=== PATIENT | male | born 1935 | race Caucasian/White ===

== ENCOUNTER → 2017-07-29 | Outpatient (CLI) | payer MEDICARE, OTHER ==
[~2017-07-29] MED LIST: ADULT LOW DOSE81 MG PO; COREG PO; DIABETA 5MG TABL5 MG PO; GEMFIBROZIL 60600 MG PO; HYDROCHLOROTH12.5 MG PO; LISINOPRIL5 MG PO; MEN'S 50+ ADVA1 EACH PO; METFORMIN 500500 MG PO; SIMVASTATIN10 MG PO; TRILIPIX45 MG PO
== END ==
LOC: M.CT 15:44
DX: S22.32XA Fracture of one rib, left side, initial encounter for closed fracture (principal); S09.8XXA Other specified injuries of head, initial encounter; G31.89 Other specified degenerative diseases of nervous system; E78.5 Hyperlipidemia, unspecified; I25.10 Atherosclerotic heart disease of native coronary artery without angina pectoris; I48.91 Unspecified atrial fibrillation; I10 Essential (primary) hypertension; Q25.3 Supravalvular aortic stenosis; I25.2 Old myocardial infarction; M51.34 Other intervertebral disc degeneration, thoracic region; Z95.1 Presence of aortocoronary bypass graft; W19.XXXA Unspecified fall, initial encounter; Y93.89 Activity, other specified; Y92.89 Other specified places as the place of occurrence of the external cause; Y99.8 Other external cause status

== ENCOUNTER → 2017-08-13 | Outpatient (CLI) | payer MEDICARE, OTHER ==
--- NOTE | 2017-08-13 14:53 | 2DMMODE ---
[place] [address] 2 D/M-MODE ECHOCARDIOGRAM Name: JEREMY VALENCIA Room: [facility]#: [id number] Admission: 08/13/17 Attend Phys: Juancho Parra, Discharge: Date of : 35 Date of Service: 08/13/17 1452 Report #: [id number] THIS REPORT FOR: //name// APPROVED REPORT Study performed: 08/13/2017 09:21:32 EXAM: Comprehensive 2D, Doppler, and color-flow Echocardiogram Patient Location: Out-Patient Status: routine BSA: 2.13 HR: 72 bpm BP: 115/60 mmHg Other Information Study Quality: Good Indications Aortic Valve Disease CAD 2D Dimensions LVEF(%): 53.46 (>50%) IVSd: 11.79 (7-11mm) LVOT Diam: 20.45 (18-24mm) LVDd: 52.48 mm PWd: 11.35 (7-11mm) Ascending Ao: 39.05 (22-36mm) LVDs: 37.90 (25-40mm) Aortic Root: 36.33 mm Snow's LVEF: 53.46 % Volumes Left Atrial Volume (Systole) LA ESV Index: 62.00 mL/m2 Aortic Valve AoV Peak Tanner.: 1.93 m/s AO Peak Gr.: 14.92 mmHg LVOT Max P.30 mmHg AO Mean Gr.: 8.74 mmHg LVOT Mean P.12 mmHg LVOT Max V: 0.76 m/s AO V2 VTI: 38.97 cm LVOT Mean V: 0.48 m/s BRAD (VTI): 1.35 cm2 LVOT V1 VTI: 15.97 cm AI [place]: 1.84 m/s2 AI PHT: 621.17 [place] [address] 2 D/M-MODE ECHOCARDIOGRAM Name: JEREMY VALENCIA Room: [facility]#: [id number] Admission: 08/13/17 Attend Phys: Juancho Parra, Discharge: Date of : 35 Date of Service: 08/13/17 1452 Report #: [id number] Mitral Valve MV Decel. Time: 211.34 ms MV E Max Tanner.: 0.92 m/s MV PHT: 61.29 ms MVA (PHT): 3.59 cm2 TDI E/Lateral E': 8.36 E/Medial E': 9.20 Medial E' Tanner.: 0.10 m/s Lateral E' Tanner.: 0.11 m/s Pulmonary Valve PV Peak Tanner.: 0.95 m/s PV Peak Gr.: 3.59 mmHg Tricuspid Valve TR Peak Gr.: 30.61 mmHg RVSP: 35.61 mmHg Left Ventricle The left ventricle is normal size. There is hypokinesis of the mid to distal septum and distal anterior and apical barrios. There is normal left ventricular wall thickness. Left ventricular systolic function is mild to moderately decreased. LVEF is 35-40%. This study is not technically sufficient to allow evaluation of the LV diastolic function due to atrial fibrillation. Right Ventricle The right ventricle is normal size. The right ventricular systolic function is normal. Atria Left atrium is moderately dilated. The right atrium size is normal. Aortic Valve Aortic valve leaflets are moderately thickened. Mild aortic regurgitation. Moderate aortic stenosis. Mitral Valve The mitral valve is normal in structure. Mild mitral regurgitation. No evidence of mitral valve stenosis. Tricuspid Valve The tricuspid valve is normal in structure. Mild tricuspid regurgitation. The RVSP is __35.6 mmHg[place] [address] 2 D/M-MODE ECHOCARDIOGRAM Name: JEREMY VALENCIA Room: [facility]#: [id number] Admission: 08/13/17 Attend Phys: Juancho Parra, Discharge: Date of : 35 Date of Service: 08/13/17 1452 Report #: [id number] The pulmonary valve is normal in structure. Mild pulmonic regurgitation. Great Vessels The aortic root is normal in size. IVC is normal in size and collapses with >50% inspiration Pericardium There is no pericardial effusion. <Conclusion> The left ventricle is normal size. There is normal left ventricular wall thickness. Left ventricular systolic function is mild to moderately decreased. LVEF is 35-40%. This study is not technically sufficient to allow evaluation of the LV diastolic function due to atrial fibrillation. Left atrium is moderately dilated. Aortic valve leaflets are moderately thickened. Mild aortic regurgitation. Moderate aortic stenosis. Mild mitral regurgitation. Mild tricuspid regurgitation. The RVSP is __35.6 mmHg. <ELECTRONICALLY SIGNED> By: Juancho Parra MD, FACC 08/13/17 145 145 145 Juancho Parra MD, FACC /INF
== END ==
LOC: M.CRD 09:00
DX: I08.3 Combined rheumatic disorders of mitral, aortic and tricuspid valves (principal); I25.10 Atherosclerotic heart disease of native coronary artery without angina pectoris; I48.91 Unspecified atrial fibrillation; E78.5 Hyperlipidemia, unspecified; I10 Essential (primary) hypertension; I25.2 Old myocardial infarction; Z95.1 Presence of aortocoronary bypass graft

== ENCOUNTER 2019-03-12 13:39 | Emergency (ER) | payer MEDICARE, OTHER ==
[~2019-03-12] VITALS: Ht 175.3 cm; Wt 99.8 kg
[2019-03-12] MEDS ORDERED: AMARYL4 MG PO (13:54)
[2019-03-12] MEDS ORDERED: XARELTO20 MG PO (13:54)
[2019-03-12] MEDS ORDERED: PIOGLITAZONE15 MG (13:54)
[2019-03-12] MEDS ORDERED: FISH OIL 1,001000 M2 PO (13:54)
[2019-03-12] MEDS ORDERED: COZAAR 25 MG TA25 M1 PO (13:55)
[2019-03-12] MEDS ORDERED: MULTIPLE VITAM1 EAC2 PO (13:55)
[2019-03-12 15:38] VITALS: BP 160/88
== END 2019-03-12 15:39 | disposition home or self-care (01) ==
LOC: M.ERS 13:39
DX: S01.01XA Laceration without foreign body of scalp, initial encounter (principal); S80.211A Abrasion, right knee, initial encounter; S80.212A Abrasion, left knee, initial encounter; I10 Essential (primary) hypertension; E11.9 Type 2 diabetes mellitus without complications; E78.00 Pure hypercholesterolemia, unspecified; G47.30 Sleep apnea, unspecified; Z90.89 Acquired absence of other organs; W01.198A Fall on same level from slipping, tripping and stumbling with subsequent striking against other object, initial encounter; Y93.01 Activity, walking, marching and hiking; Y92.009 Unspecified place in unspecified non-institutional (private) residence as the place of occurrence of the external cause; Y99.8 Other external cause status

== ENCOUNTER 2019-03-28 21:33 | Emergency (ER) | payer MEDICARE, OTHER ==
[~2019-03-28] VITALS: Ht 182.9 cm; Wt 90.7 kg
[~2019-03-28 21:33] MED LIST changes: +AMARYL4 MG PO; +CARVEDILOL3.125 MG PO; -COREG PO; +COZAAR 25 MG TA25 M1 PO; +FISH OIL 1,001000 M2 PO; -METFORMIN 500500 MG PO; +METFORMIN HCL500 MG PO; +MULTIPLE VITAM1 EAC2 PO; +PIOGLITAZONE15 MG; +XARELTO20 MG PO
[2019-03-28 22:12] LABS: ABSOLUTE EOSINOPHILS 0.1 thou/uL (0.0-0.7); ABSOLUTE MONOCYTES 0.5 thou/uL (0.0-1.2); ABSOLUTE NEUTROPHILS 3.8 thou/uL (1.6-8.1); BASOPHILS 0.4 %; EOSINOPHILS 1.3 %; HEMATOCRIT 31.3 % (42.0-52.0); HEMOGLOBIN 10.5 gm/dL (14.0-18.0); LYMPHOCYTES 18.8 %; MCH 33.1 pg (26.0-34.0); MCHC 33.7 g/dL (28.0-37.0); MCV 98.3 fL (80.0-100.0); MONOCYTES 10.2 %; MPV 9.7 fl. (7.2-11.1); NUCLEATED RBCS 0 /100WBC; PLATELET COUNT* 101 thou/uL (150-400); POLYS 69.3 %; RBC 3.18 mil/uL (4.50-6.00); RDW-CV 15.2 % (10.5-14.5); WBC 5.4 thou/uL (4.0-11.0)
[2019-03-28 22:21] LABS: CALCIUM 8.4 mg/dL (8.5-10.1); CREATININE 1.3 mg/dL (0.6-1.3); POTASSIUM 4.4 mmol/L (3.5-5.1)
[2019-03-28 22:26] LABS: INR 1.3; PROTIME 13.1 Seconds (9.20-11.50)
[2019-03-28 22:33] LABS: ALBUMIN 3.1 g/dL (3.4-5.0); TOTAL BILIRUBIN 0.5 mg/dL (<0.1-1.0); TOTAL PROTEIN 6.3 g/dL (6.4-8.2)
[2019-03-28] MEDS ORDERED: NORCO 5-325 TA1 EAC1 PO (23:17)
[2019-03-28 23:23] VITALS: BP 148/52
== END 2019-03-28 23:32 | disposition home or self-care (01) ==
LOC: M.ERS 21:33
PROVIDERS: Personal Emergency Response Attendant
DX: S83.91XA Sprain of unspecified site of right knee, initial encounter (principal); R60.0 Localized edema; I10 Essential (primary) hypertension; E78.00 Pure hypercholesterolemia, unspecified; E11.9 Type 2 diabetes mellitus without complications; G47.30 Sleep apnea, unspecified; Z90.89 Acquired absence of other organs; Z98.890 Other specified postprocedural states; X58.XXXA Exposure to other specified factors, initial encounter; Y92.89 Other specified places as the place of occurrence of the external cause; Y93.89 Activity, other specified; Y99.8 Other external cause status

== ENCOUNTER 2019-03-29 13:10 | Inpatient (IN) | payer MEDICARE, OTHER ==
[~2019-03-29] VITALS: Ht 175.3 cm; Wt 97.5 kg
[~2019-03-29 13:10] MED LIST changes: +NORCO 5-325 TA1 EAC1 PO
[2019-03-29 13:24] VITALS: BP 149/78
[2019-03-29 13:56] LABS: ABSOLUTE EOSINOPHILS 0.1 thou/uL (0.0-0.7); ABSOLUTE MONOCYTES 0.6 thou/uL (0.0-1.2); ABSOLUTE NEUTROPHILS 3.9 thou/uL (1.6-8.1); BASOPHILS 0.3 %; HEMATOCRIT 31.5 % (42.0-52.0); HEMOGLOBIN 10.8 gm/dL (14.0-18.0); LYMPHOCYTES 18.4 %; MCH 33.2 pg (26.0-34.0); MCHC 34.2 g/dL (28.0-37.0); MONOCYTES 10.8 %; MPV 9.7 fl. (7.2-11.1); NUCLEATED RBCS 0 /100WBC; PLATELET COUNT* 117 thou/uL (150-400); POLYS 69.5 %; RBC 3.25 mil/uL (4.50-6.00); RDW-CV 15.3 % (10.5-14.5); WBC 5.6 thou/uL (4.0-11.0)
[2019-03-29 14:04] LABS: CALCIUM 8.6 mg/dL (8.5-10.1); CREATININE 1.1 mg/dL (0.6-1.3)
[2019-03-29 14:07] LABS: INR 1.5
[2019-03-29 14:09] LABS: ALBUMIN 3.3 g/dL (3.4-5.0); TOTAL BILIRUBIN 0.7 mg/dL (<0.1-1.0); TOTAL PROTEIN 6.7 g/dL (6.4-8.2); URIC ACID* 3.4 mg/dL (2.6-7.2)
[2019-03-29 16:42] VITALS: BP 149/78
--- NOTE | 2019-03-29 16:57 | NUR ---
PATIENT ARRIVED TO UNIT AT 1652 VIA WHEELCHAIR FROM THE ER. ALERT AND ORIENTED X 4. VITAL SIGNS STABLE ON ROOM AIR. AMBULATED WITH STAND BY ASSISTANCE FROM WHEELCHAIR TO BED. ORIENTED PATIENT TO ROOM. FALL PRECAUTIONS IN PLACE AND BED ALARM ON. CALL LIGHT WITHIN REACH. NURSING WILL CONTINUE TO MONITOR.
[2019-03-29 17:20] VITALS: BP 143/84
--- NOTE | 2019-03-29 22:53 | NUR ---
PATIENT RECEIVED METFORMIN AT 2037 HIS BLOOD SUGAR WAS 234. RECHECKED AT 2250 AND IT WAS 236. LEFT A MESSAGE FOR DR CIFUENTES TO LET HIM KNOW
[2019-03-29 23:18] VITALS: BP 132/69
--- NOTE | 2019-03-30 04:53 | NUR ---
PATIENT WAS PLEASANT DID NOT REPORT ANY PAIN UNLESS HE MOVES HIS RLE. HE DID NOT WANT ANY PAIN MEDS. AT 0840 I GAVE HIM METFORMIN AND HIS BLOOD SUGAR WAS 234 CHECKED 2 HOURS LATER IT WAS 246. I LEFT A MESSAGE WITH DR HUSTON ON [facility] JUST TO INFORM HIM OF THAT. HE USED HIS URINAL AND GOT A DOSE OF CEFEPIME IV. SLEPT THROUGH SHIFT. WILL CONTINUE TO MONITOR. VASCULAR HAS BEEN CONSULTED FOR ROUTINE VISIT TO CHECK FOR HEMATOMA
[2019-03-30 05:04] LABS: ABSOLUTE EOSINOPHILS 0.1 thou/uL (0.0-0.7); ABSOLUTE LYMPHOCYTES 1.1 thou/uL (0.8-5.3); ABSOLUTE MONOCYTES 0.6 thou/uL (0.0-1.2); ABSOLUTE NEUTROPHILS 3.2 thou/uL (1.6-8.1); BASOPHILS 0.4 %; EOSINOPHILS 1.1 %; HEMATOCRIT 28.2 % (42.0-52.0); HEMOGLOBIN 9.4 gm/dL (14.0-18.0); MCH 32.5 pg (26.0-34.0); MCHC 33.4 g/dL (28.0-37.0); MCV 97.4 fL (80.0-100.0); MONOCYTES 11.9 %; MPV 9.7 fl. (7.2-11.1); NUCLEATED RBCS 0 /100WBC; PLATELET COUNT* 103 thou/uL (150-400); POLYS 64.6 %; RDW-CV 15.3 % (10.5-14.5); WBC 4.9 thou/uL (4.0-11.0)
[2019-03-30 05:13] LABS: CALCIUM 8.4 mg/dL (8.5-10.1); CREATININE 1.2 mg/dL (0.6-1.3); POTASSIUM 4.2 mmol/L (3.5-5.1)
[2019-03-30 08:00] VITALS: BP 136/79
--- NOTE | 2019-03-30 12:00 | EKG ---
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1935 Requested By: Rogelio Plasencia Order Number: [id number] MD: Marcin Moser Measurements Intervals [place] Rate: 52 P: FL: QRS: -20 QRSD: 143 T: -2 QT: 437 QTc: 407 Interpretive Statements Atrial fibrillation Right bundle branch block Compared to ECG 08/17/2009 00:19:52 Right bundle-branch block now present Sinus bradycardia no longer present T-wave abnormality no longer present Electronically Signed On 03-30-2019 11:59:53 CDT by Marcin Moser [email or web address] <ELECTRONICALLY SIGNED> By: Marcin Moser MD, [facility] 03/30/19 1159 1555 1555 Marcin Moser MD, [facility] /EPI
--- NOTE | 2019-03-30 13:12 | 2DMMODE ---
[place] [address] 2 D/M-MODE ECHOCARDIOGRAM Name: JEREMY VALENCIA Room: [address] IN [facility]#: [id number] Admission: 03/29/19 Attend Phys: Paco Cordova, Discharge: Date of : 35 Date of Service: 03/30/19 1311 Report #: [id number] THIS REPORT FOR: //name// APPROVED REPORT Study performed: 03/30/2019 10:16:19 EXAM: Comprehensive 2D, Doppler, and color-flow Echocardiogram Patient Location: In-Patient Room #: [facility] Status: routine BSA: 2.13 HR: 68 bpm BP: 136/79 mmHg Rhythm: Atrial Fibrillation Other Information Study Quality: Good Indications Congestive Heart Failure Atrial Fibrillation 2D Dimensions IVSd: 13.26 (7-11mm) LVOT Diam: 23.50 (18-24mm) LVDd: 50.40 mm PWd: 14.00 (7-11mm) LVDs: 33.38 (25-40mm) Aortic Root: 36.76 mm Volumes Left Atrial Volume (Systole) LA ESV Index: 79.40 mL/m2 Aortic Valve AoV Peak Tanner.: 2.12 m/s AO Peak Gr.: 18.02 mmHg LVOT Max P.40 mmHg AO Mean Gr.: 9.95 mmHg LVOT Mean P.17 mmHg LVOT Max V: 0.78 m/s AO V2 VTI: 42.65 cm LVOT Mean V: 0.50 m/s BRAD (VTI): 1.55 cm2 LVOT V1 VTI: 15.25 cm AI [place]: 1.40 m/s2 AI PHT: 761.05 [place] [address] 2 D/M-MODE ECHOCARDIOGRAM Name: JEREMY VALENCIA Room: [address] IN ..#: [id number] Admission: 03/29/19 Attend Phys: Paco Cordova, Discharge: Date of : 35 Date of Service: 03/30/19 1311 Report #: [id number] MV Decel. Time: 138.99 ms MV PHT: 40.31 ms MVA (PHT): 5.46 cm2 TDI Medial E' Tanner.: 0.09 m/s Lateral E' Tanner.: 0.15 m/s Pulmonary Valve PV Peak Tanner.: 1.11 m/s PV Peak Gr.: 4.89 mmHg Tricuspid Valve RAP Estimate: 5.00 mmHg TR Peak Gr.: 25.87 mmHg RVSP: 30.00 mmHg PA Pressure: 30.00 mmHg Left Ventricle The left ventricle is normal size. There is mild diffuse hypokinesis of left ventricular wall motion. There is normal left ventricular wall thickness. Left ventricular systolic function is mildly decreased. LVEF is 45%. This study is not technically sufficient to allow evaluation of the LV diastolic function due to atrial fibrillation. Right Ventricle The right ventricle is normal size. The right ventricular systolic function is normal. Atria Left atrium is moderately dilated. The right atrium size is normal. Aortic Valve Mild aortic valve sclerosis. Mild aortic regurgitation. Mild aortic stenosis. Mitral Valve The mitral valve is normal in structure. Mild mitral regurgitation. No evidence of mitral valve stenosis. Tricuspid Valve The tricuspid valve is normal in structure. Mild tricuspid regurgitation. Mild pulmonary hypertension. Pulmonic Valve The pulmonary valve is normal in structure. There [place] [address] 2 D/M-MODE ECHOCARDIOGRAM Name: JEREMY VALENCIA Room: [address] IN [facility].#: [id number] Admission: 03/29/19 Attend Phys: Paco Cordova, Discharge: Date of : 35 Date of Service: 03/30/19 1311 Report #: [id number] valvular regurgitation. Great Vessels The aortic root is normal in size. IVC is not well visualized. Pericardium There is no pericardial effusion. <Conclusion> The left ventricle is normal size. There is normal left ventricular wall thickness. Left ventricular systolic function is mildly decreased. LVEF is 45%. This study is not technically sufficient to allow evaluation of the LV diastolic function due to atrial fibrillation. The right ventricle is normal size. Left atrium is moderately dilated. Mild aortic valve sclerosis. Mild aortic regurgitation. Mild aortic stenosis. The mitral valve is normal in structure. Mild mitral regurgitation. No evidence of mitral valve stenosis. The tricuspid valve is normal in structure. Mild tricuspid regurgitation. Mild pulmonary hypertension. There is no pericardial effusion. There is mild diffuse hypokinesis of left ventricular wall motion. <ELECTRONICALLY SIGNED> By: Marcin Moser MD, [facility] 03/30/19 131 10 10 Marcin Moser MD, FACC /INF
--- NOTE | 2019-03-30 15:00 | NUR ---
PT.IN BED. AND DAUGHTER AT BEDSIDE. PT.SAID HE IS NORMALLY INDEPENDENT. HE DOES NOT USE ANY DME. HIS HAS A CANE. HE SAID HE MIGHT GET A CANE. NO HX OF HH. 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 LATELY HE HASN'T BEEN ABLE TO DRIVE DUE TO R LEG PAIN BUT DRIVES. HIS SON VILMA IS HIS DPOA.
[2019-03-30 16:00] VITALS: BP 102/50
--- NOTE | 2019-03-30 17:36 | NUR ---
PT A&Ox4. VITALS STABLE. UP AD YOLA. TUBAGRIP IN PLACE. IV PATENT. MINIMAL PAIN, DENIED MEDS. DENIED N/V. TOLERATING MEALS. FAMILY IN ROOM. CALL LIGHT WITHIN REACH. WILL CONTINUE TO MONITOR.
[2019-03-30 20:19] VITALS: BP 127/67
[2019-03-31 00:30] VITALS: BP 127/67
--- NOTE | 2019-03-31 07:33 | CON ---
[address] [address] CONSULTATION Name: JEREMY VALENCIA Room: [address] IN M.R.#: [id number] Admission: 03/29/19 Attend Phys: Paco Cordova MD Discharge: Date of : 35 Report #: [id number] THIS REPORT FOR: //name// CC: Paco Cordova Marcin Sethi DATE OF SERVICE: 03/30/2019 INFECTIOUS DISEASE CONSULTATION ATTENDING PHYSICIAN: Paco Cordova M.D. REASON FOR EVALUATION: Right knee and thigh inflammatory eruption with concern about cellulitis, possible hematoma. HISTORY OF PRESENT ILLNESS: Chart reviewed, patient examined. This is an 83-year-old gentleman with diabetes mellitus, also with known complications of vasculopathy, who presented subsequent to a fall. He struck both his knees roughly 3 weeks ago. This initially had a bruised area, primarily on the left that seems to have improved; however, over the course of last several days, the right lower extremity essentially through its length has taut edema. There is some associated discomfort. No overt pain. He is able to bend the knee although he does have some limitations in his ambulation. It is not clear if he has had fevers or chills. Appetite has been mildly diminished. No pulmonary or gastrointestinal related complaints. He has been evaluated on several occasions. He was seen in the Emergency Room, was found to have normal white count. Sugar was elevated at 234. CRP 11.5. Venous Doppler showed no evidence of deep venous thrombosis, although did show a 3 x 5.2 cm, 13 cm in length, complex cystic lesion, perhaps a Mitchell's cyst versus hematoma. Blood cultures are sterile thus far. He has not had recorded temperature elevations. He was empirically started on therapy with cefazolin. ALLERGIES: None known. CURRENT MEDICATIONS: Include losartan, fish oil, glimepiride, aspirin, gemfibrozil, furosemide, pioglitazone, pantoprazole, cefazolin, metformin, p.r.n. analgesics and antiemetics. PAST MEDICAL HISTORY: Diabetes mellitus type 2, history of hypertension, has known vasculopathy with aortocoronary bypass grafting, obstructive sleep apnea. SOCIAL HISTORY: Nonsmoker, no ethanol, no illicit drug use. FAMILY HISTORY: Noncontributory. REVIEW OF SYSTEMS: Otherwise, unremarkable 10-point review [place] [address] CONSULTATION Name: JEREMY VALENCIA Room: [address]#: [id number] Admission: 03/29/19 Attend Phys: Paco Cordova MD Discharge: Date of : 35 Report #: [id number] exception of noted above in history of present illness. PHYSICAL EXAMINATION: GENERAL: He is alert, cooperative, appropriate. He is in borc-uk-stxitcev distress, appears to be generally well nourished. He is not encephalopathic. VITAL SIGNS: Temperature 98.2, pulse 60, respirations 16, blood pressure 136/79. SKIN: Warm, dry, no rashes. HEENT: Otherwise, unremarkable. NECK: Supple. LUNGS: Generally clear to auscultation. HEART: Regular. I do not appreciate a murmur, borderline bradycardic. ABDOMEN: Soft, nontender, nondistended. EXTREMITIES: Right lower extremity has taut edema, essentially extending well into the proximal thigh and down the leg to the ankle. It is mildly erythematous, does have some decreased range of motion about the knee, but is not particularly painful for him to manipulate passively. There appears to be perhaps a puncture site in the mid portion of the anterior thigh. ASSESSMENT AND PLAN: Right lower extremity inflammatory eruption. I think it is reasonable to continue the empiric therapy with cefazolin. It is difficult to ascertain whether this is strictly a noninfectious cause, certainly having possible skin and soft tissue infection. I do not think there is a septic arthritis, cannot entirely exclude a septic bursitis given the trauma to the site. We will evaluate with MRI. Await surgical evaluation. Thank you. We will follow. <ELECTRONICALLY SIGNED> By: Kem Chauhan MD 03/31/19 0733 1035 [id number] Chauhan MD /nt
[2019-03-31 07:52] VITALS: BP 119/80
[2019-03-31 09:16] VITALS: BP 119/80
[2019-03-31] MEDS ORDERED: KEFLEX500 M1 PO (11:00)
[2019-03-31] MEDS ORDERED: LASIX 40 MG TAB40 M2 PO (11:01)
[2019-03-31] MEDS ORDERED: KLOR-CON 1010 MEQ PO (12:32)
--- NOTE | 2019-03-31 12:33 | NUR ---
PT DISCHARGED TO HOME BY WHEELCHAIR WITH NURSING STAFF AND . IV OUT. PT STABLE UPON DISCHARGE. PAPER RX GIVEN WITH CARE NOTES. DENIED PAIN. DENIED N/V. TUBIGRIP AND HAN WRAP IN PLACE.
== END 2019-03-31 12:32 | disposition home or self-care (01) | DRG 602 ==
LOC: M.ERS 13:10 → M.ORTHSURG 15:52 → M.TBA-ER 15:52 → M.ORTHSURG 16:52
PROVIDERS: Emergency Medicine; ADMIT Internal Medicine
DX: L03.115 Cellulitis of right lower limb (principal); I50.23 Acute on chronic systolic (congestive) heart failure; M25.061 Hemarthrosis, right knee; S80.11XA Contusion of right lower leg, initial encounter; D64.9 Anemia, unspecified; M66.0 Rupture of popliteal cyst; I48.91 Unspecified atrial fibrillation; E78.5 Hyperlipidemia, unspecified; I11.0 Hypertensive heart disease with heart failure; W19.XXXA Unspecified fall, initial encounter; T14.8XXA Other injury of unspecified body region, initial encounter; X58.XXXA Exposure to other specified factors, initial encounter; I25.10 Atherosclerotic heart disease of native coronary artery without angina pectoris; E11.9 Type 2 diabetes mellitus without complications; Z79.82 Long term (current) use of aspirin; Z79.899 Other long term (current) drug therapy; Z95.1 Presence of aortocoronary bypass graft; Y93.89 Activity, other specified; Y92.89 Other specified places as the place of occurrence of the external cause; Y99.8 Other external cause status

== ENCOUNTER → 2019-04-13 | Outpatient (CLI) | payer MEDICARE, OTHER ==
[~2019-04-13] MED LIST changes: +KEFLEX500 M1 PO; +KLOR-CON 1010 MEQ PO; +LASIX 40 MG TAB40 M2 PO
== END ==
LOC: M.MRI 15:47
DX: S86.811A Strain of other muscle(s) and tendon(s) at lower leg level, right leg, initial encounter (principal); X58.XXXA Exposure to other specified factors, initial encounter; Y93.89 Activity, other specified; Y92.89 Other specified places as the place of occurrence of the external cause; Y99.8 Other external cause status

== ENCOUNTER 2020-09-26 15:22 | Inpatient (IN) | payer MEDICARE ==
[~2020-09-26] VITALS: Ht 182.9 cm; Wt 90.4 kg
[2020-09-26 15:30] VITALS: BP 171/103
[2020-09-26 15:46] LABS: ABSOLUTE EOSINOPHILS 0.1 thou/uL (0.0-0.7); ABSOLUTE LYMPHOCYTES 0.7 thou/uL (0.8-5.3); ABSOLUTE MONOCYTES 0.6 thou/uL (0.0-1.2); ABSOLUTE NEUTROPHILS 4.3 thou/uL (1.6-8.1); BASOPHILS 0.5 %; EOSINOPHILS 1.5 %; HEMATOCRIT 35.1 % (42.0-52.0); HEMOGLOBIN 11.6 gm/dL (14.0-18.0); LYMPHOCYTES 12.2 %; MCH 32.4 pg (26.0-34.0); MCHC 33.1 g/dL (28.0-37.0); MCV 97.8 fL (80.0-100.0); MONOCYTES 10.2 %; MPV 10.7 fl. (7.2-11.1); NUCLEATED RBCS 0 /100WBC; PLATELET COUNT* 100 thou/uL (150-400); POLYS 75.6 %; RBC 3.59 mil/uL (4.50-6.00); RDW-CV 15.5 % (10.5-14.5); WBC 5.7 thou/uL (4.0-11.0)
[2020-09-26 15:52] LABS: CREATININE 1.3 mg/dL (0.6-1.3); POTASSIUM 4.3 mmol/L (3.5-5.1)
[2020-09-26 15:54] LABS: INR 1.4; PROTIME 14.3 Seconds (9.20-11.50)
[2020-09-26 16:03] LABS: ALBUMIN 3.8 g/dL (3.4-5.0); TOTAL BILIRUBIN 0.8 mg/dL (<0.1-1.0); TOTAL PROTEIN 7.4 g/dL (6.4-8.2)
[2020-09-26 18:45] VITALS: BP 166/99
[2020-09-26 18:46] VITALS: BP 166/99; BP 184/82
--- NOTE | 2020-09-26 18:49 | NUR ---
PT ARRIVED ON UNIT APPROX 1845 PT A&OX4 VSS. EDEMA/REDNESS OBSERVED TO LLE. PT ON 2L O2 BY NC. O2 SAT 100% A FIB ON MONITOR. PT IS ACCUCHECK. IV TO LAC PATENT, SALINE LOCKED. PT RESTS IN ROOM WITH CALL LIGHT IN REACH.
[2020-09-27 00:12] VITALS: BP 145/83
[2020-09-27 05:02] LABS: ABSOLUTE EOSINOPHILS 0.1 thou/uL (0.0-0.7); ABSOLUTE LYMPHOCYTES 0.7 thou/uL (0.8-5.3); ABSOLUTE MONOCYTES 0.6 thou/uL (0.0-1.2); ABSOLUTE NEUTROPHILS 3.6 thou/uL (1.6-8.1); BASOPHILS 0.5 %; EOSINOPHILS 2.3 %; HEMATOCRIT 29.6 % (42.0-52.0); LYMPHOCYTES 13.2 %; MCH 32.5 pg (26.0-34.0); MCHC 33.8 g/dL (28.0-37.0); MCV 96.2 fL (80.0-100.0); MONOCYTES 11.2 %; MPV 10.7 fl. (7.2-11.1); NUCLEATED RBCS 0 /100WBC; PLATELET COUNT* 82 thou/uL (150-400); POLYS 72.8 %; RBC 3.08 mil/uL (4.50-6.00); RDW-CV 15.6 % (10.5-14.5)
[2020-09-27 05:04] VITALS: BP 126/70
[2020-09-27 05:12] LABS: ANION GAP 8 mmol/L (7-16); BUN 27 mg/dL (7-18); CHLORIDE 107 mmol/L (98-107); CO2 28 mmol/L (21-32); CREATININE 1.1 mg/dL (0.6-1.3); GLUCOSE 83 mg/dL (70-99); SODIUM 143 mmol/L (136-145); TROPONIN-I LEVEL <0.06 ng/mL (<0.06)
[2020-09-27 07:50] VITALS: BP 150/86
--- NOTE | 2020-09-27 09:30 | EKG ---
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 : 1935 Requested By: Leonardo Muller Order Number: [id number] MD: Juancho Parra Measurements Intervals [place] Rate: 79 P: LA: QRS: -10 QRSD: 117 T: 38 QT: 444 QTc: 510 Interpretive Statements Atrial fibrillation Premature ventricular contraction Right bundle branch block Compared to ECG 03/29/2019 15:55:30 No significant changes noted Electronically Signed On 09-27-2020 9:30:06 [employer] MACHINE OPERATOR by Juancho Parra [email or web address] <ELECTRONICALLY SIGNED> By: Juancho Parra MD, FACC 09/27/20 0930 1527 1527 Juancho Parra MD, [facility] /EPI
--- NOTE | 2020-09-27 10:20 | NUR ---
Pt is A&O. Resides at home with , in room at bedside. Pt is independent. Has a home cpap, no other DME. No hx of HH or SNF. Goal is home at dc, no needs anticipated. Following.
[2020-09-27 11:55] VITALS: BP 138/78
--- NOTE | 2020-09-27 15:41 | 2DMMODE ---
[place] [address] 2 D/M-MODE ECHOCARDIOGRAM Name: JEREMY VALENCIA Room: [address] IN [facility]#: [id number] Admission: 09/27/20 Attend Phys: Paco Cordova, Discharge: Date of : 35 Date of Service: 09/27/20 1541 Report #: [id number] THIS REPORT FOR: cc: Marcin Sethi John E. DO Liston, Michael J. MD [facility] ~ APPROVED REPORT Study performed: 09/27/2020 11:04:49 EXAM: Comprehensive 2D, Doppler, and color-flow Echocardiogram Patient Location: In-Patient Room #: [facility] Status: routine BSA: 2.14 HR: 72 bpm BP: 150/86 mmHg Rhythm: Atrial Fibrillation Other Information Study Quality: Good Indications Congestive Heart Failure Atrial Fibrillation 2D Dimensions IVSd: 9.16 (7-11mm) LVOT Diam: 21.67 (18-24mm) LVDd: 60.29 mm PWd: 10.17 (7-11mm) Ascending Ao: 40.30 (22-36mm) LVDs: 50.26 (25-40mm) Aortic Root: 37.21 mm Volumes Left Atrial Volume (Systole) LA ESV Index: 87.60 mL/m2 Aortic Valve AoV Peak Tanner.: 1.87 m/s AO Peak Gr.: 13.99 mmHg LVOT Max P.58 mmHg AO Mean Gr.: 7.84 mmHg LVOT Mean P.69 mmHg LVOT Max V: 0.95 m/s AO V2 VTI: 37.45 cm LVOT Mean V: 0.59 m/s BRAD (VTI): 1.81 cm2 LVOT V1 VTI: 18.40 [place] [address] 2 D/M-MODE ECHOCARDIOGRAM Name: JEREMY VALENCIA Room: [address] IN [facility]#: [id number] Admission: 09/27/20 Attend Phys: Paco Cordova, Discharge: Date of : 35 Date of Service: 09/27/20 1541 Report #: [id number] TDI Lateral E' Tanner.: 0.11 m/s Pulmonary Valve PV Peak Tanner.: 1.03 m/s PV Peak Gr.: 4.27 mmHg Tricuspid Valve RAP Estimate: 5.00 mmHg TR Peak Gr.: 39.47 mmHg RVSP: 44.00 mmHg PA Pressure: 44.00 mmHg Left Ventricle Left ventricle is mildly dilated. There is akinesis of the apex and distal portions of the apical septum and apical anterior wall. There is normal left ventricular wall thickness. Left ventricular systolic function is moderate to severely decreased. LVEF is 30-35%. This study is not technically sufficient to allow evaluation of the LV diastolic function due to atrial fibrillation. Right Ventricle The right ventricle is normal size. The right ventricular systolic function is normal. Atria Left atrium is severely dilated. Right atrium is moderately dilated. Aortic Valve Moderate aortic valve sclerosis. Mild aortic regurgitation. Mild aortic stenosis. Mitral Valve The mitral valve is normal in structure. Mild mitral regurgitation. No evidence of mitral valve stenosis. Tricuspid Valve The tricuspid valve is normal in structure. Mild tricuspid regurgitation. Moderate pulmonary hypertension. Pulmonic Valve The pulmonary valve is normal in structure. There is no pulmonic valvular regurgitation. Great Vessels The aortic root is normal in size. [place] [address] 2 D/M-MODE ECHOCARDIOGRAM Name: JEREMY VALENCIA Room: [address] IN [facility]#: [id number] Admission: 09/27/20 Attend Phys: Paco Cordova, Discharge: Date of : 35 Date of Service: 09/27/20 1541 Report #: [id number] visualized. Pericardium There is no pericardial effusion. <Conclusion> Left ventricle is mildly dilated. There is normal left ventricular wall thickness. Left ventricular systolic function is moderate to severely decreased. LVEF is 30-35%. There is akinesis of the apex and distal portions of the apical septum and apical anterior wall. Left atrium is severely dilated. Right atrium is moderately dilated. Moderate aortic valve sclerosis. Mild aortic stenosis. Mild aortic regurgitation. Mild mitral regurgitation. Mild tricuspid regurgitation. Moderate pulmonary hypertension. <ELECTRONICALLY SIGNED> By: Juancho Parra MD, FACC 09/27/20 1541 1541 1541 Juancho Parra MD, FACC /INF
[2020-09-27 16:32] VITALS: BP 134/66
[2020-09-27 20:00] VITALS: BP 152/83
[2020-09-28 00:25] VITALS: BP 145/81
--- NOTE | 2020-09-28 00:32 | NUR ---
PT ALERT ORIENTED. UP AD YOLA IN ROOM. TELEMETRY SHOWS AFIB. ON RA.
[2020-09-28 03:50] VITALS: BP 159/81
[2020-09-28 05:27] LABS: ABSOLUTE EOSINOPHILS 0.1 thou/uL (0.0-0.7); ABSOLUTE LYMPHOCYTES 0.8 thou/uL (0.8-5.3); ABSOLUTE MONOCYTES 0.5 thou/uL (0.0-1.2); ABSOLUTE NEUTROPHILS 3.4 thou/uL (1.6-8.1); BASOPHILS 0.4 %; HEMATOCRIT 32.8 % (42.0-52.0); LYMPHOCYTES 16.8 %; MCH 32.1 pg (26.0-34.0); MCHC 33.6 g/dL (28.0-37.0); MCV 95.3 fL (80.0-100.0); MONOCYTES 10.7 %; MPV 10.9 fl. (7.2-11.1); NUCLEATED RBCS 0 /100WBC; PLATELET COUNT* 99 thou/uL (150-400); POLYS 70.1 %; RBC 3.44 mil/uL (4.50-6.00); RDW-CV 15.6 % (10.5-14.5); WBC 4.9 thou/uL (4.0-11.0)
[2020-09-28 05:43] LABS: ALBUMIN 3.4 g/dL (3.4-5.0); CALCIUM 8.9 mg/dL (8.5-10.1); CREATININE 1.2 mg/dL (0.6-1.3); TOTAL BILIRUBIN 0.8 mg/dL (<0.1-1.0); TOTAL PROTEIN 6.9 g/dL (6.4-8.2)
[2020-09-28 08:00] VITALS: BP 166/87
[2020-09-28 12:02] VITALS: BP 90/57
--- NOTE | 2020-09-28 12:59 | NUR ---
Cards following, low EF. Anticipate dc to home tomorrow. No needs anticipated.
[2020-09-28 13:44] LABS: URINE BILIRUBIN NEGATIVE (Negative); URINE BLOOD NEGATIVE (Negative); URINE CLARITY CLEAR; URINE COLOR YELLOW; URINE GLUCOSE-RANDOM NEGATIVE (Negative); URINE KETONES NEGATIVE (Negative); URINE LEUKOCYTES-REFLEX NEGATIVE (Negative); URINE NITRITE-REFLEX NEGATIVE (Negative); URINE PROTEIN NEGATIVE (Negative); URINE SPECIFIC GRAVITY 1.015 (1.005-1.030); URINE UROBILINOGEN 0.2 E.U./dl (0.2-1.0)
[2020-09-28 16:57] VITALS: BP 111/62
--- NOTE | 2020-09-28 19:50 | NUR ---
ASSUMED PT CARE AT 0730, PT AOX4 BUT FORGETFUL, NO C/O CHEST PAIN. PT WORKED W/ CARDIOLOGY TODAY AND ON 2000 ML FLUID RESTRICTION NOW. PT GOAL IS TO REMAIN COMPLIANT W/ FLUID RESTRICTION AND FREE OF CHEST PAIN. IN ROOM AND UPDATED ON POC. MEDS PER MAR, HOURLY ROUNDING OBSERVED, CALL LIGHT W/IN REACH.
[2020-09-28 20:00] VITALS: BP 105/53
[2020-09-29] VITALS (7 sets, daily range): BP systolic 132–172; BP diastolic 67–92
[2020-09-29 04:40] LABS: ABSOLUTE EOSINOPHILS 0.1 thou/uL (0.0-0.7); ABSOLUTE LYMPHOCYTES 0.8 thou/uL (0.8-5.3); ABSOLUTE MONOCYTES 0.6 thou/uL (0.0-1.2); ABSOLUTE NEUTROPHILS 3.7 thou/uL (1.6-8.1); BASOPHILS 0.4 %; HEMATOCRIT 29.5 % (42.0-52.0); LYMPHOCYTES 15.3 %; MCH 32.4 pg (26.0-34.0); MCHC 33.7 g/dL (28.0-37.0); MCV 96.1 fL (80.0-100.0); NUCLEATED RBCS 0 /100WBC; PLATELET COUNT* 87 thou/uL (150-400); POLYS 70.3 %; RBC 3.07 mil/uL (4.50-6.00); RDW-CV 15.2 % (10.5-14.5); WBC 5.3 thou/uL (4.0-11.0)
[2020-09-29 04:49] LABS: CALCIUM 8.8 mg/dL (8.5-10.1); CREATININE 1.3 mg/dL (0.6-1.3); POTASSIUM 3.7 mmol/L (3.5-5.1)
--- NOTE | 2020-09-29 06:11 | NUR ---
ASSUMED PT CARE AT APPROX 1930. PT IS AWAKE AND ORIENTED X4. PT IS NOT IN DISTRESS, NO DESATURATIONS NOTED ON ROOM AIR. PT IS AFIB ON THE PIPING DRAFTER-RATE IS CONTROLLED. THIS NURSE WAS DOING HOURLY ROUNDING AT AROUND 0420H, THIS NURSE WAS STANDING BY THE PT'S DOOR AND NOTICED THAT THE PT IS UP AND JUST GOT DONE GOING TO THE BATHROOM AND IS GETTING READY TO GET BACK IN BED. THIS NURSE IS ON HER WAY IN TO THE ROOM THIS NURSE HEARD A NOISE AND SAW THAT THE PT FELL ON THE FLOOR. AN ABRASION/HEMATOMA WAS NOTED ON THE RIGHT TEMPORAL AREA OF THE HEAD. NO OTHER INJURY WAS NOTED. VITAL SIGNS TAKEN AND POST FALL ASSESSMENT DONE. HIGH FALL PRECAUTIONS PUT IN PLACE. CHARGE NURSE, NURSING IT ADMINISTRATOR AND PHYSICIAN DIGITIZER OPERATOR NOTIFIED. PT STATED HE DID NOT WANT HIS FAMILY INFORMED AT THIS TIME. PT EDUCATION GIVEN REGARDING THE USE OF CALL LIGHT AND PT WAS EDUCATED TO CALL FOR ASSISTANCE BEFORE GETTING UP. PT IS INFORMED ABOUT THE USE OF BED AND CHAIR ALARMS. PT IS CLOSELY MONITORED
--- NOTE | 2020-09-29 08:41 | NUR ---
WOUND NURSE: INFORMED PATIENT HAD A FALL THIS MORNING. RECEIVED AN ABRASION ON THE RIGHT WORSHIP MEASURING 3.0 X 4.0 X 0.1 CM. THIS CONTAINS RED, NONGRANULATING TISSUE, NO ACTIVE DRAINAGE NOW. CLEANSED WITH NORMAL SALINE AND GAUZE. APPIED SKIN PREP TO PERIWOUND TISSUE FOR PROTECTION. APPLIED OIL EMULSION GAUZE UNDER BODERED FOAM DRESSING TO WOUND. PATIENT WITH LLE EDEMA, LOCALIZED AREA OF REDNESS AND SWELLING ON THE LEFT LATERAL TIBIAL AREA. PATIENT WITH GOOD PEDAL PULSES BILATERALLY, TOES ARE PINK, FEET ARE WARM. PATIENT REPORTS HE HAS NOT SMOKED SINCE 15 YRS OLD AND NO MORE THAN 4 PACKS IN HIS LIFETIME. PATIENT STATES THE SAME PERTAINING TO ETOH USE. PATIENT WITH COUPLE OF OLD STABLE BROWN SCABS WHICH ARE SMALL, FROM PATIENT STATES BUMPING INTO THINGS. APPLIED SINGLE LAYER SIZE E TUBIGRIPS TO BLE TOES TO KNEE FOR EDEMA CONTROL. PATIENT INSTRUCTED IN SAFTY MEASURES AND MEASURES TO PROMOTE HEALING. PATIENT STATES HE UNDERSTANDS.
--- NOTE | 2020-09-29 11:54 | NUR ---
Pt having a stress test today. Pt had a fall yesterday. Plan dc to home tomorrow, no needs.
--- NOTE | 2020-09-29 15:19 | CARDNUC ---
[place] [address] CARDIAC NUCLEAR IMAGING REPORT Name: JEREMY VALENCIA Room: [address] IN [facility]#: [id number] Admission: 09/27/20 Attend Phys: Paco Cordova, Discharge: Date of : 35 Date of Service: 09/29/20 1518 Report #: [id number] THIS REPORT FOR: cc: Marcin Sethi John E. DO Liston, Michael J. MD [facility] ~ APPROVED REPORT Imaging Protocol: Rest Tc-99m/Stress Tc-99m 1 day Study performed: 09/29/2020 09:19:14 Indication: chest pain, dyspnea, LE edema, acute confusion/forgetfulness Patient Location: In-Patient Room #: 206 Stress Tech: Sylvia Denny Stress Nurse: KATHY Olmedo Tech:SAMIA Easley Ht: 6 ft 0 in Wt: 222 lbs BSA: 2.23 m2 BMI: 30.10 Medical History Medical History: chest pain, dyspnea, LE edema/cellulitis, acute confusion/forgetfullness, moderate aortic stenosis, ischemic cardiomyopathy, decreased EF%, DM-insulin, HTN, HLD, CABG, systolic murmur, chronic lung disease, recent fall, CHF, AFIB. Medications: Carvedilol, Metformin, Xarelto, ACTOS, Amaryl, ASA 325 Mg, Fish Oil, Lasix, Cozaar, K-Dur, Hydralazine. Allergies: No known drug allergies Cardiac Risk Factors: Age, Diabetes (insulin), HTN, Hyperlipidemia, SOB. AFib, aortic stenosis, ischemic cardiomyopathy, murmur. Previous Cardiac Procedures: CABG Pretest Chest Pain Characteristics: No chest pain Exercise History: Sedentary Physical Disabilities: AFib, Leg pain/cellulitis, unstable weak gait -assist x1 Meds Held (24 hrs): Carvedilol Resting Data Rest SPECT myocardial perfusion imaging was performed in supine position 30 minutes following the intravenous injection of 9.9 mCi of Tc-99m Sestamibi. Time of rest injection: 754 Date: 09/29/2020 [place] [address] CARDIAC NUCLEAR IMAGING REPORT Name: JEREMY VALENCIA Room: [address]#: [id number] Admission: 09/27/20 Attend Phys: Paco Cordova, Discharge: Date of : 35 Date of Service: 09/29/20 1518 Report #: [id number] The images were gated to evaluate regional wall motion and calculate left ventricular ejection fraction. Administration Route: IV Administration Site: Right AC Pharmacologic Stress Pharmacologic stress test was performed by injecting Regadenoson 0.4 mg IV push over 10-15 seconds immediately followed by the intravenous injection of 31.1 mCi of Tc-99m Sestamibi. Time of stress injection: 934 Date: 09/29/2020 Administration Route: IV Administration Site: Right AC Gated Stress SPECT was performed 40 minutes after stress injection. The images were gated to evaluate regional wall motion and calculate left ventricular ejection fraction. Stress only was performed in the Supine position. Stress Test Details Stress Test: Pharmacologic stress testing performed using 0.4 mg of regadenoson per 5 mL given IV over 10 seconds. Reason for pharmacologic stress test: AFib, Leg pain/cellulitis, unstable weak gait -assist x1. HR Max Heart Rate (APMHR): 135 bpm Resting HR: 83 bpm Target HR (85% APMHR): 114 bpm Max HR Achieved: 148 bpm % of APMHR: 109 Recovery HR: 84 bpm BP Resting BP: 143/111 mmHg Max BP: 108/65 mmHg Recovery BP: 131/94 mmHg ECG Resting ECG: Atrial Fibrillation Stress ECG: Atrial Fibrillation ST Change: None Arrhythmia: VPC's Recovery ECG: Atrial Fibrillation Recovery ST Change: None Recovery Arrhythmia: VPC's Clinical Reason for Termination: Completed protocol Stress Symptoms: Dyspnea, lightheaded, [place] [address] CARDIAC NUCLEAR IMAGING REPORT Name: JEREMY VALENCIA Room: [address] IN [facility]#: [id number] Admission: 09/27/20 Attend Phys: Paco Cordova, Discharge: Date of : 35 Date of Service: 09/29/20 1518 Report #: [id number] Exercise duration: 00 min 00 sec Exercise capacity: 1.00 METs The patient tolerated Lexiscan infusion without significant cardiac symptoms. Nurse Comments An 85 year old male inpatient presented for a sitting Lexiscan Nuclear Stress test. Test well tolerated. Recovery unremarkable. Patient was stable and stated he felt good when escorted via wheelchair to Nuclear Medicine for imaging. Stress ECG Conclusion The baseline twelve-lead EKG shows atrial fibrillation without significant ST segment abnormality. There are occasional unifocal premature ventricular contractions. EKGs obtained during and post Lexiscan infusion show atrial fibrillation with no significant ST segment changes when compared to baseline. There continues to be occasional unifocal premature ventricular contractions. Study Quality Study: Good Artifact: No artifact Study Data At rest, the left ventricular ejection fraction was 29%.. Post stress, the left ventricular ejection was 36%.. SSS: SRS: 1.14 SDS: Perfusion There are fixed defects of severe intensity and moderate size involving the basal to apical anterolateral wall the apex and the basal inferior wall. No reversible defects are identified. Wall Motion Global LV systolic function is severely decreased. There is akinesis of the septum and apex portions of the distal anterolateral wall and the basal inferior wall. Nuclear Conclusion ECG Findings: negative for ischemia Clinical Findings: negative for ischemia Nuclear Findings: negative for ischemia Exercise Capacity: not assessed Left Ventricular Function: [place] [address] CARDIAC NUCLEAR IMAGING REPORT Name: JEREMY VALENCIA Room: [address]#: [id number] Admission: 09/27/20 Attend Phys: Paco Cordova, Discharge: Date of : 35 Date of Service: 09/29/20 1518 Report #: [id number] Risk Study: high Perfusion study show no defect to suggest ischemia. There are multiple defects to suggest prior infarct. Left ventricular systolic function is severely decreased. This is a high risk study based on severe left ventricular systolic dysfunction. Findings consistent with an ischemic cardiomyopathy. <Conclusion> The baseline twelve-lead EKG shows atrial fibrillation without significant ST segment abnormality. There are occasional unifocal premature ventricular contractions. EKGs obtained during and post Lexiscan infusion show atrial fibrillation with no significant ST segment changes when compared to baseline. There continues to be occasional unifocal premature ventricular contractions. <ELECTRONICALLY SIGNED> By: Juancho Parra MD, FACC 09/29/20 1518 151 17 Juancho Parra MD, FACC /INF
[2020-09-30] VITALS: BP 129/63
[2020-09-30 04:00] VITALS: BP 126/70
--- NOTE | 2020-09-30 04:38 | NUR ---
ASSUMED PT CARE AT APPROX 1930. PT IS AWAKE AND ORIENTED X4, FORGETFUL AT TIMES. PT IS NOT IN DISTRESS, NO DESATURATIONS NOTED ON ROOM AIR. PT DENIES PAIN/DICOMFORT. NO ACUTE CHANGES THIS SHIFT. HIGH FALL PRECAUTIONS IN PLACE. HOURLY ROUNDING DONE FOR PT SAFETY.
[2020-09-30 08:00] VITALS: BP 131/61
[2020-09-30] MEDS ORDERED: COZAAR 50 MG TA50 M1 PO (08:52)
[2020-09-30] MEDS ORDERED: KEFLEX500 M1 PO (10:33)
[2020-09-30 10:52] VITALS: BP 131/61
--- NOTE | 2020-09-30 11:49 | NUR ---
ASSUMED PT CARE AT 0730, PT AOX4 BUT FORGETFUL. PT WORKED W/ CARDIOLOGY AND DR THIS MORNING AND DC ORDERS RECEIVED W/ SCHEDULED CARDIAC APPT SET UP OUTPT IN 3 DAYS. DC INSTRUCTIONS, CARE NOTES, SCRIPTS AND F/U APPTS GIVEN TO PT. PT COMMUNICATES UNDERSTANDING OF DC TEACHING. IV AND BLUNGER REMOVED. PT DC'D BY WC W/ NURSING STAFF AND ALL PAPERWORK AND PERSONAL BELONGINGS AT APPROX 1145.
[2020-09-30 11:51] VITALS: BP 131/61
== END 2020-09-30 11:35 | disposition home or self-care (01) | DRG 177 ==
LOC: M.ERS 15:22 → M.TBA-ER 16:50 → M.2W 18:38
PROVIDERS: Emergency Medicine Emergency Medical Services; Registered Nurse; ADMIT Internal Medicine; ATTEND Internal Medicine
DX: J15.6 Pneumonia due to other Gram-negative bacteria (principal); G93.41 Metabolic encephalopathy; I50.43 Acute on chronic combined systolic (congestive) and diastolic (congestive) heart failure; L03.116 Cellulitis of left lower limb; J96.10 Chronic respiratory failure, unspecified whether with hypoxia or hypercapnia; I48.20 Chronic atrial fibrillation, unspecified; D69.3 Immune thrombocytopenic purpura; D68.69 Other thrombophilia; Z20.822 Contact with and (suspected) exposure to COVID-19; E11.9 Type 2 diabetes mellitus without complications; E78.00 Pure hypercholesterolemia, unspecified; F03.90 Unspecified dementia, unspecified severity, without behavioral disturbance, psychotic disturbance, mood disturbance, and anxiety; I11.0 Hypertensive heart disease with heart failure; I25.10 Atherosclerotic heart disease of native coronary artery without angina pectoris; I25.5 Ischemic cardiomyopathy; Z95.1 Presence of aortocoronary bypass graft; Z79.01 Long term (current) use of anticoagulants; Z79.82 Long term (current) use of aspirin; Z79.899 Other long term (current) drug therapy

== ENCOUNTER → 2020-10-18 | Outpatient (CLI) | payer OTHER ==
[~2020-10-18] MED LIST changes: +COZAAR 50 MG TA50 M1 PO
[2020-10-18 11:29] LABS: CALCIUM 9.2 mg/dL (8.5-10.1); CREATININE 1.6 mg/dL (0.6-1.3); POTASSIUM 4.3 mmol/L (3.5-5.1)
[2020-10-19 02:06] LABS: GLYCOHEMOGLOBIN (HGB A1C) 7.5 % (4.8-5.6)
== END ==
LOC: M.LAB 10:56
PROVIDERS: ATTEND Registered Nurse
DX: E11.22 Type 2 diabetes mellitus with diabetic chronic kidney disease (principal); N18.9 Chronic kidney disease, unspecified; I50.22 Chronic systolic (congestive) heart failure; Z68.29 Body mass index [BMI] 29.0-29.9, adult

== ENCOUNTER → 2020-11-24 | Outpatient (CLI) | payer OTHER ==
[2020-11-24 11:14] LABS: HEMATOCRIT 35.8 % (42.0-52.0); HEMOGLOBIN 11.7 gm/dL (14.0-18.0); MCH 31.7 pg (26.0-34.0); MCHC 32.6 g/dL (28.0-37.0); MCV 97.4 fL (80.0-100.0); MPV 9.4 fl. (7.2-11.1); RBC 3.68 mil/uL (4.50-6.00); RDW-CV 16.6 % (10.5-14.5); WBC 4.7 thou/uL (4.0-11.0)
[2020-11-24 11:20] LABS: CALCIUM 9.1 mg/dL (8.5-10.1); CREATININE 1.1 mg/dL (0.6-1.3)
== END | disposition home or self-care (01) ==
LOC: M.LAB 10:57
PROVIDERS: ATTEND Registered Nurse
DX: I50.22 Chronic systolic (congestive) heart failure (principal)